=== PATIENT | female | born 1990 | race African-American/Black ===

== ENCOUNTER 2017-12-30 15:01 | Emergency (ER) | payer OTHER ==
[2017-12-30] MEDS: IBUPROFEN 600 MG TAB PO (15:56)
== END 2017-12-30 17:10 | disposition home or self-care (01) ==
LOC: FTE 15:01
DX: M79.672 Pain in left foot (principal); F17.210 Nicotine dependence, cigarettes, uncomplicated
CPT/HCPCS: 73630; 73630-LT; 99283-25

== ENCOUNTER 2018-02-25 07:36 | Emergency (ER) | payer OTHER | END 2018-02-25 08:59 | disposition home or self-care (01) | LOC: FTE 07:36 | DX: M79.645 Pain in left finger(s) (principal); F17.210 Nicotine dependence, cigarettes, uncomplicated | CPT/HCPCS: 29130; 73140; 99283-25 ==

== ENCOUNTER 2018-04-20 10:49 | Emergency (ER) | payer OTHER ==
[2018-04-20] MEDS: IBUPROFEN 800 MG TAB PO (12:29)
== END 2018-04-20 13:04 | disposition home or self-care (01) ==
LOC: FTE 13:04
DX: S49.91XA Unspecified injury of right shoulder and upper arm, initial encounter (principal); F17.210 Nicotine dependence, cigarettes, uncomplicated; W22.01XA Walked into wall, initial encounter; Y92.89 Other specified places as the place of occurrence of the external cause
CPT/HCPCS: 73030; 73030-RT; 99283-25